=== PATIENT | female | born 1970 | race Caucasian/White ===

== ENCOUNTER 2017-05-12 11:59 | Emergency (ER) | payer OTHER ==
[~2017-05-12] VITALS: Ht 157.5 cm; Wt 50.8 kg
[~2017-05-12 11:59] MED LIST: ADULT LOW DOSE81 MG PO; ANAPROX; ANTI INFLAMMATORY; BACLOFEN 10MG T10 M1 PO; BENTYL 20 MG TA20 M1 PO; CYCLOBENZAPRINE; FLEXERIL; FLEXERIL PO; GABAPENTIN; HYDROXYZINE HCL25 M1 PO; IBUPROFEN 800800 M1 PO; LORAZEPAM 1 MG T1 M1 PO; NABUMETONE 500500 M1 PO; NAPROSYN500 MG PO; NORCO 5-325 TA1 EAC1 PO; NORCO 5-325 TA1 EACH PO; NYSTATIN 1100000 U/M BU; PANCREASE; PENICILLIN VK500 MG PO; PERCOCET 5-3251 EACH PO; PRILOSEC 20 MG20 MG PO; TORADOL 10 MG T10 MG PO; TRAMADOL PO; VISTARIL 25 MG25 M1 PO; VITAMIN D 5050000 I1; ZANAFLEX4 M1 PO; ZOFRAN4 MG PO; ZPAK PO
[2017-05-12] MEDS ORDERED: PRILOSEC 10MG C10 MG PO (12:09)
[2017-05-12] MEDS ORDERED: PERCOCET 5-3251 EACH PO (13:11)
[2017-05-12] MEDS ORDERED: CYCLOBENZAPRINE10 MG PO (13:12)
[2017-05-12] MEDS ORDERED: NAPROSYN500 MG PO (13:13)
[2017-05-12 13:46] VITALS: BP 155/79
== END 2017-05-12 13:46 | disposition home or self-care (01) ==
LOC: M.ERS 11:59
DX: S22.41XA Multiple fractures of ribs, right side, initial encounter for closed fracture (principal); K21.9 Gastro-esophageal reflux disease without esophagitis; K58.9 Irritable bowel syndrome, unspecified; Z86.73 Personal history of transient ischemic attack (TIA), and cerebral infarction without residual deficits; Z90.89 Acquired absence of other organs; Z88.8 Allergy status to other drugs, medicaments and biological substances; Z88.5 Allergy status to narcotic agent; Z88.7 Allergy status to serum and vaccine; W10.8XXA Fall (on) (from) other stairs and steps, initial encounter; Y93.89 Activity, other specified; Y92.89 Other specified places as the place of occurrence of the external cause; Y99.8 Other external cause status

== ENCOUNTER 2017-06-02 09:34 | Inpatient (IN) | payer OTHER ==
[~2017-06-02] VITALS: Ht 154.9 cm; Wt 53.5 kg
--- NOTE | ~2017-06-02 | PROC ---
[address] [address] PROCEDURE REPORT Name: DIALLO BULLOCK Room: [address] IN .R.#: [id number] Admission: 06/02/17 Attend Phys: Derrick Shaver MD Discharge: 06/05/17 Date of : 66 Report #: [id number] THIS REPORT FOR: //name// For GI report, please see the Provation report in Perceptive 7 content. By: [id number] Records Staff DRAKE /MARIANO
[~2017-06-02 09:34] MED LIST changes: +CYCLOBENZAPRINE10 MG PO; +PRILOSEC 10MG C10 MG PO
[2017-06-02 09:39] VITALS: BP 141/94
[2017-06-02] MEDS ORDERED: IBUPROFEN 600600 M1 PO (09:41)
[2017-06-02 09:53] LABS: URINE BILIRUBIN NEGATIVE (Negative); URINE BLOOD NEGATIVE (Negative); URINE CLARITY CLEAR; URINE COLOR YELLOW; URINE GLUCOSE-RANDOM NEGATIVE (Negative); URINE KETONES NEGATIVE (Negative); URINE LEUKOCYTES-REFLEX NEGATIVE (Negative); URINE NITRITE-REFLEX NEGATIVE (Negative); URINE PROTEIN NEGATIVE (Negative); URINE SPECIFIC GRAVITY 1.025 (1.005-1.030); URINE UROBILINOGEN 0.2 E.U./dl (0.2-1.0)
[2017-06-02 10:15] LABS: ABSOLUTE BASOPHILS 0.1 thou/uL (0.0-0.2); ABSOLUTE LYMPHOCYTES 1.5 thou/uL (0.8-5.3); ABSOLUTE MONOCYTES 0.6 thou/uL (0.0-1.2); ABSOLUTE NEUTROPHILS 11.5 thou/uL (1.6-8.1); BASOPHILS 0.6 %; EOSINOPHILS 0.3 %; HEMATOCRIT 46.3 % (37.0-47.0); HEMOGLOBIN 15.6 gm/dL (12.0-15.0); LYMPHOCYTES 10.8 %; MCH 33.4 pg (26.0-34.0); MCHC 33.8 g/dL (28.0-37.0); MCV 98.7 fL (80.0-100.0); MONOCYTES 4.2 %; MPV 7.2 fl. (7.2-11.1); NUCLEATED RBCS 0 /100WBC; PLATELET COUNT* 358 thou/uL (150-400); POLYS 84.1 %; RBC 4.69 mil/uL (4.20-5.00); RDW-CV 14.7 % (10.5-14.5); WBC 13.7 thou/uL (4.0-11.0)
[2017-06-02 10:28] LABS: CALCIUM 9.3 mg/dL (8.5-10.1); CREATININE 0.7 mg/dL (0.6-1.3)
--- NOTE | 2017-06-02 10:28 | NUR ---
CT CHEST ,ABD/PEL W/O CONTRAST COMPLEATED PATIENT RETURNED TO ED
[2017-06-02 10:32] LABS: TOTAL BILIRUBIN 0.3 mg/dL (<0.1-1.0); TOTAL PROTEIN 7.7 g/dL (6.4-8.2)
[2017-06-02 11:42] VITALS: BP 150/97
[2017-06-02 12:11] VITALS: BP 141/92
--- NOTE | 2017-06-02 15:47 | EKG ---
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
[2017-06-02 16:06] VITALS: BP 137/79
[2017-06-02 20:00] VITALS: BP 130/78
--- NOTE | 2017-06-02 20:23 | NUR ---
PATIENT HAS BEEN A/O X 4 THIS SHIFT SINCE BEING ADMITTED. IV FLUIDS CONTINUE TO INFUSE AND BANANA BAG INFUSING PRESENTLY. PATIENT MEDICATED FOR ABDOMINAL PAIN X 2 WITH MINIMAL RELIEF. PATIENT NAUSEATED, RELIEVED WITH ZOFRAN. PATIENT GIVEN ATIVAN X 2 WITH RELIEF OF ANXIETY. UP WITH ASSIST TO BATHROOM, IV REMAINS PATENT TO RIGHT ANKLE. REMAINS NPO. GI CONSULTED THIS SHIFT. NO SIGNS OF ALCOHOL WITHDRAWAL THIS SHIFT. FALL PRECAUTIONS IN PLACE. HOURLY ROUNDING COMPLETED. CALL LIGHT WITHIN REACH. WILL CONTINUE WITH PLAN OF CARE.
[2017-06-03] VITALS (7 sets, daily range): BP systolic 128–151; BP diastolic 64–91
[2017-06-03 04:20] LABS: ABSOLUTE BASOPHILS 0.1 thou/uL (0.0-0.2); ABSOLUTE EOSINOPHILS 0.1 thou/uL (0.0-0.7); ABSOLUTE LYMPHOCYTES 2.1 thou/uL (0.8-5.3); ABSOLUTE MONOCYTES 0.5 thou/uL (0.0-1.2); ABSOLUTE NEUTROPHILS 4.5 thou/uL (1.6-8.1); BASOPHILS 0.8 %; EOSINOPHILS 1.5 %; HEMATOCRIT 38.3 % (37.0-47.0); LYMPHOCYTES 28.7 %; MCH 33.7 pg (26.0-34.0); MCHC 33.6 g/dL (28.0-37.0); MCV 100.3 fL (80.0-100.0); MONOCYTES 6.4 %; NUCLEATED RBCS 0 /100WBC; PLATELET COUNT* 287 thou/uL (150-400); POLYS 62.6 %; RBC 3.82 mil/uL (4.20-5.00); RDW-CV 14.5 % (10.5-14.5); WBC 7.3 thou/uL (4.0-11.0)
[2017-06-03 04:30] LABS: CALCIUM 8.3 mg/dL (8.5-10.1); CREATININE 0.7 mg/dL (0.6-1.3); POTASSIUM 3.7 mmol/L (3.5-5.1); TOTAL BILIRUBIN 0.8 mg/dL (<0.1-1.0); TOTAL PROTEIN 6.3 g/dL (6.4-8.2)
[2017-06-03 04:45] LABS: HEMOGLOBIN 12.9 gm/dL (12.0-15.0)
--- NOTE | 2017-06-03 05:20 | NUR ---
ASSUMED CARE OF PATIENT AT ABOUT 0300 FROM JORDY MARIE. AGREE WITH SHIFT ASSESSMENT. PATIENT WAS GIVEN PAIN AND ANXIETY MEDS TWICE THIS SHIFT. IV FLUIDS CONTINUE TO INFUSE ORDERED. PATIENT REMAINS NPO. WILL CONTINUE TO MONITOR.
--- NOTE | 2017-06-03 17:07 | NUR ---
SW met with pt to complete initial assessment, introduce self, and SW role. Pt lives at home with her and has children and grandchildren. Pt lost her Medicaid two years ago according to pt. SW to send referral to [facility] [place] [facility]. SW to provide any needed referrals/resources and follow to assist with safe dc planning.
[2017-06-04 04:06] VITALS: BP 134/82
[2017-06-04 05:04] LABS: ABSOLUTE BASOPHILS 0.1 thou/uL (0.0-0.2); ABSOLUTE EOSINOPHILS 0.2 thou/uL (0.0-0.7); ABSOLUTE LYMPHOCYTES 1.6 thou/uL (0.8-5.3); ABSOLUTE MONOCYTES 0.4 thou/uL (0.0-1.2); ABSOLUTE NEUTROPHILS 5.1 thou/uL (1.6-8.1); BASOPHILS 0.8 %; EOSINOPHILS 2.8 %; HEMATOCRIT 36.1 % (37.0-47.0); HEMOGLOBIN 12.3 gm/dL (12.0-15.0); LYMPHOCYTES 21.8 %; MCH 33.5 pg (26.0-34.0); MCV 98.5 fL (80.0-100.0); MONOCYTES 5.7 %; MPV 7.9 fl. (7.2-11.1); NUCLEATED RBCS 0 /100WBC; PLATELET COUNT* 244 thou/uL (150-400); POLYS 68.9 %; RBC 3.66 mil/uL (4.20-5.00); RDW-CV 13.9 % (10.5-14.5); WBC 7.4 thou/uL (4.0-11.0)
--- NOTE | 2017-06-04 05:04 | NUR ---
PT UP MOST OF THE NIGHT, IV FLUIDS INFUSED, PLEASANT, PRN PAIN, NAUSEA AND ANXIETY MEDS PER REQUEST, UP AD DICK TO THE BATHROOM, NPO NOW FOR EGD LATER TODAY, CALL LIGHT IN REACH, WILL CONTINUE TO MONITOR
[2017-06-04 05:28] LABS: ALBUMIN 2.8 g/dL (3.4-5.0); CALCIUM 8.2 mg/dL (8.5-10.1); CREATININE 0.5 mg/dL (0.6-1.3); MAGNESIUM 2.4 mg/dL (1.8-2.4); TOTAL BILIRUBIN 0.5 mg/dL (<0.1-1.0); TOTAL PROTEIN 5.9 g/dL (6.4-8.2)
[2017-06-04 06:00] LABS: POTASSIUM 2.9 mmol/L (3.5-5.1)
[2017-06-04 07:45] VITALS: BP 151/85
[2017-06-04 10:51] VITALS: BP 149/95; BP 151/85
[2017-06-04 11:20] VITALS: BP 156/84
[2017-06-04 14:09] LABS: HEPATITIS B SURFACE AG Negative (Negative)
[2017-06-04 16:16] VITALS: BP 154/84
--- NOTE | 2017-06-04 16:26 | NUR ---
EGD THIS AFTERNOON, VITALS STABLE POST PROCEDURE. BANANA BAG INFUSING THEN IV SL. IV CHANGED TO RIGHT HAND IN PACU PER DR. TOLEDO REQUEST. PATIENT ADVANCED TO REG DIET. POTASSIUM REPLACED PO THIS SHIFT.
--- NOTE | 2017-06-04 16:32 | NUR ---
SW met with pt to provide list of resources. Pt was very sleepy and wanted to rest. SW asked if she had heard from [employer] and she said she had not yet. SW spoke with Clare Field who said she did speak briefly with pt but pt said that pt was too tired to complete initial screening. SW to continue to follow.
[2017-06-04 23:39] VITALS: BP 122/67; BP 132/78
[2017-06-05 04:00] VITALS: BP 149/74
[2017-06-05 04:41] LABS: HEMATOCRIT 35.2 % (37.0-47.0); MCH 33.7 pg (26.0-34.0); MCV 99.2 fL (80.0-100.0); MPV 7.8 fl. (7.2-11.1); NUCLEATED RBCS 0 /100WBC; PLATELET COUNT* 236 thou/uL (150-400); RBC 3.55 mil/uL (4.20-5.00); WBC 6.8 thou/uL (4.0-11.0)
[2017-06-05 04:51] LABS: PREALBUMIN 26.4 mg/dL (18.0-35.7)
[2017-06-05 04:54] LABS: ALBUMIN 3.1 g/dL (3.4-5.0); CREATININE 0.7 mg/dL (0.6-1.3); POTASSIUM 3.7 mmol/L (3.5-5.1); TOTAL BILIRUBIN 0.3 mg/dL (<0.1-1.0); TOTAL PROTEIN 6.6 g/dL (6.4-8.2)
--- NOTE | 2017-06-05 05:07 | NUR ---
PT UP IN ROOM AND HALLS AT START OF SHIFT, REFUSING BED ALARM ON-SETTING IT OFF FREQUENTLY-OBSERVED STEADY GAIT. BED ALARM TURNED ON AFTER IV MORPHINE AND LORAZEPAM GIVEN OVERNIGHT. OCC SHAKEY HAND TREMORS. NICOTINE PATCH GIVEN. R HAND IVF INFUSED PER PUMP, SL AFTER BANANA BAG FINISHED. K REPLACED, AM LABS DRAWN. TELE ST, SR. ABLE TO USE CALL LITE AND MAKE NEEDS KNOWN. TOLERATING LIQUIDS AND PUDDING WITHOUT N/V.
[2017-06-05 06:21] LABS: ABSOLUTE LYMPHOCYTES 0.5 thou/uL (0.8-5.3); ABSOLUTE MONOCYTES 0.3 thou/uL (0.0-1.2); ABSOLUTE NEUTROPHILS 6.1 thou/uL (1.6-8.1); ANISOCYTOSIS 1+; PLATELET ESTIMATE ADEQUATE
--- NOTE | 2017-06-05 08:07 | CON ---
[address] [address] CONSULTATION Name: DIALLO BULLOCK Room: [address] IN M.R.#: [id number] Admission: 06/02/17 Attend Phys: Derrick Shaver MD Discharge: Date of : 66 Report #: [id number] THIS REPORT FOR: //name// CC: Derrick Shaver [facility] physician/PCP DICTATED BY: Lissette MARADIAGAP DATE OF SERVICE: 06/03/2017 The patient does not have a PCP. Please note at the time of this dictation, the patient was seen and physically examined by myself. REASON FOR CONSULTATION: Abnormal CT findings, nausea and vomiting and abdominal pain. HISTORY OF PRESENT ILLNESS: This is a 47-year-old female presented to the Emergency Room with having increasing abdominal discomfort mainly in the epigastric to left upper quadrant area, which she states is progressively getting worse. She started vomiting and having severe nausea, which started the night before admission. She denies any bright red blood or any coffee ground emesis at this time. The patient did state she had a history of EGD and a colon done at [place] years ago. Upper was normal and she was told that she had colon polyps at that time. We will attempt to see if we can get those records at this time. The patient was in the Emergency Room here at [facility] in April for falling and fracturing some ribs in which she has been taking pain medicine for. She declines that she had been taking some ibuprofen and Aleve prior to that first admission in April, but says she only takes it every once in a while and it is not an ongoing daily basis that she takes that. She states her bowels move, soft and formed daily. She has not noticed any bright red blood or any melena. The patient states prior to coming in, she did try some Pepto-Bismol, but that came right back up shortly thereafter. ALLERGIES: WELLBUTRIN, DILAUDID, AND FLU VACCINE. MEDICATIONS FROM HOME: Have been ibuprofen and some omeprazole. FAMILY HISTORY: Noncontributory. SOCIAL HISTORY: The patient does smoke 1-1/2 packs per day. She does admit to alcohol use a 12 pack daily and has done this for years and she does use marijuana recreationally. REVIEW OF SYSTEMS: Twelve-point review of systems is essentially negative except what [place] [address] CONSULTATION Name: DIALLO BULLOCK Landy Room: [address] IN [facility]#: [id number] Admission: 06/02/17 Attend Phys: Derrick Shaver MD Discharge: Date of : 66 Report #: [id number] PHYSICAL EXAMINATION: VITAL SIGNS: Temperature 36.6, pulse 77, respirations 16, blood pressure 134/64. HEART: Regular rate and rhythm. CHEST: Lungs are diminished, but clear. ABDOMEN: Soft, positive bowel sounds in all 4 quadrants with no mass is noted, but tenderness noted in the left upper quadrant to epigastric area. LABORATORY DATA: Hemoglobin on admission was 15.6, it is down to 12.9, hematocrit 38.3, white count was 13.7 on admission, down to 7.3 and platelets 287. Sodium 143, potassium 3.7, chloride 109, CO2 29, BUN is 11, creatinine 0.7, GFR is 89, glucose is 98. Alcohol on admission was 53, CRP was 24.3. Lipase was 1129. She is down to 697 and her LFTs were completely normal. CT of the abdomen and pelvis showed duodenal wall thickening in the first, second and third portions with also noted calcifications within the pancreas. IMPRESSION: 1. Abdominal pain. 2. Nausea and vomiting. 3. Leukocytosis. 4. Elevated lipase. 5. Nonsteroidal antiinflammatory drug use. 6. History of alcohol abuse. PLAN: 1. EGD tomorrow. 2. We will attempt to obtain records from [facility]. 3. Increase her IV fluids 250 mL an hour. 4. Continue clear liquids. 5. Further recommendations to be made after the EGD has been performed tomorrow. Thank you for allowing us to participate in this patient's care. Please do not hesitate to call with any questions in regard to this consult. ADDENDUM REFERRING PHYSICIAN: Derrick Shaver MD The patient has no primary care provider. Seen and examined. I agree with plan that has been outlined by nurse practitioner, Lissette Gillis. In reviewing the patient's CT scan, she has evidence for chronic pancreatitis with calcifications noted in the head and tail of her pancreas and there is some indistinct inflammation noted at the level of the duodenal sweep suggestive of either pancreatitis or duodenitis or even a [address] [place] [address] CONSULTATION Name: DIALLO BULLOCK Room: M.317-P ADM IN M.R.#: [id number] Admission: 06/02/17 Attend Phys: Derrick Shaver MD Discharge: Date of : 66 Report #: [id number] duodenal ulcer. She has been taking both ibuprofen and Aleve for the pain that she had from the rib fractures. She previously had been followed by Caleb, but he and she has not been seen by anyone for her medical problems for the last 2 years. She does have a longstanding history of chronic alcohol use and abuse, and is certainly aware that she needs to discontinue alcohol, but does not really have any plans to do so at this time. Unfortunately, she also states that she has lost her Medicaid and has no real form of insurance with regards to the same. I doubt that she would qualify for much of anything given the fact that she continues to drink alcohol. In any event, we will proceed with upper endoscopy tomorrow and Dr. Avendano will make further recommendations regarding her care business development consultant. <ELECTRONICALLY SIGNED> By: Cyrus De Leon DO 06/05/17 0807 1621 1914Cyrus De Leon DO /nt
--- NOTE | 2017-06-05 08:07 | CON ---
[address] [address] CONSULTATION Name: DIALLO BULLOCK Room: [address] ADM IN M.R.#: [id number] Admission: 06/02/17 Attend Phys: Derrick Shaver MD Discharge: Date of : 66 Report #: [id number] THIS REPORT FOR: //name// CC: Derrick Shaver MD FAM physician/PCP DATE OF SERVICE: 06/02/2017 ADDENDUM REFERRING PHYSICIAN: Derrick Shaver MD The patient has no primary care provider. Seen and examined. I agree with plan that has been outlined by nurse practitioner, Lissette Gillis. In reviewing the patient's CT scan, she has evidence for chronic pancreatitis with calcifications noted in the head and tail of her pancreas and there is some indistinct inflammation noted at the level of the duodenal sweep suggestive of either pancreatitis or duodenitis or even a duodenal ulcer. She has been taking both ibuprofen and Aleve for the pain that she had from the rib fractures. She previously had been followed by Caleb, but he and she has not been seen by anyone for her medical problems for the last 2 years. She does have a longstanding history of chronic alcohol use and abuse, and is certainly aware that she needs to discontinue alcohol, but does not really have any plans to do so at this time. Unfortunately, she also states that she has lost her Medicaid and has no real form of insurance with regards to the same. I doubt that she would qualify for much of anything given the fact that she continues to drink alcohol. In any event, we will proceed with upper endoscopy tomorrow and Dr. Avendano will make further recommendations regarding her care custodial. <ELECTRONICALLY SIGNED> By: Cyrus De Leon DO 06/05/17806 15 38Cyrus De Leon DO /nt
[2017-06-05 09:15] VITALS: BP 128/74
[2017-06-05] MEDS ORDERED: HYDROXYZINE HCL25 M2 PO (10:04)
[2017-06-05] MEDS ORDERED: PRILOSEC 20 MG20 MG PO (10:04)
[2017-06-05] MEDS ORDERED: HYDROCODONE-AP1 EAC6 PO (10:44)
[2017-06-05 10:45] VITALS: BP 149/74
--- NOTE | 2017-06-05 11:08 | NUR ---
PATIENT DISCHARGED TO HOME AT THIS TIME WITH SPOUSE. VERBALIZES UNDERSTANDING OF PAPERWORK AND SCRIPTS. IV DC'D. REG DIET TOLERATED. PATIENT TAKEN OUT VIA WHEELCHAIR.
--- NOTE | 2017-06-07 11:02 | S ---
[place] [address] SURGICAL PATH RPT PROCEDURE Name: EBONY BIRD Room: [address] IN ..#: [id number] Admission: 06/02/17 Date of : 66 Discharge: 06/05/17 Report #: [id number] Path Case #: [id number] PATHOLOGY REPORT COLLECTION DATE: 06/04/2017 RECEIVED DATE: 06/04/2017 SUBMITTING PHYS: Dr. Michael Avendano OTHER PHYS: Dr. Derrick Shaver SPECIMEN(S) RECEIVED: A.Duodenal biopsy for duodenitis * * * * * * * * * * * * FINAL DIAGNOSIS: Duodenal biopsy: - Mild non-specific active duodenitis, negative for granulomas, viral inclusions, and dysplasia. (TERESA:mgr; 06/07/2017) PATHOLOGIST: Kolton Briscoe M.D. REPORT ELECTRONICALLY SIGNED BY: Kolton Briscoe M.D. DATE/TIME: 06/07/2017 11:01 * * * * * * * * * * * * GROSS PATHOLOGY: Received in formalin labeled "Ebony Bird duodenal biopsy for duodenitis," are 2 segments of valdez soft tissue measuring 0.7 x 0.4 x 0.2 cm in aggregate dimensions and ranging from 0.3 to 0.4 cm in maximum dimension. The specimen is submitted entirely in cassette A1. (TSD; 06/04/2017) CLINICAL HISTORY: None provided INITIAL CPT CODE(S): A; 97642 Professional services performed by [facility] at [facility] [address] [place] [address] Technical services performed by [facility] at [address] [place] [address], [facility] [address] [address]. [facility] [address] [place] [address] SURGICAL PATH RPT PROCEDURE Name: EBONY BIRD Room: [address] IN ..#: [id number] Admission: 06/02/17 Date of : 66 Discharge: 06/05/17 Report #: [id number] Path Case #: [id number] [address] PHONE: [phone] DIRECTOR: Simone Hernandez M.D. * * * END OF REPORT * * *
== END 2017-06-05 11:08 | disposition home or self-care (01) | DRG 438 ==
LOC: M.ERS 09:34 → M.TBA-ER 10:56 → M.3W 10:56
PROVIDERS: Family Medicine; Internal Medicine Gastroenterology; ADMIT Internal Medicine
PROC: 0DB98ZX Excision of Duodenum, Via Natural or Artificial Opening Endoscopic, Diagnostic (ICD-10-PCS; principal; 2017-06-04)
DX: K85.20 Alcohol induced acute pancreatitis without necrosis or infection (principal); E43 Unspecified severe protein-calorie malnutrition; R65.10 Systemic inflammatory response syndrome (SIRS) of non-infectious origin without acute organ dysfunction; F10.231 Alcohol dependence with withdrawal delirium; K86.1 Other chronic pancreatitis; K58.9 Irritable bowel syndrome, unspecified; M79.7 Fibromyalgia; F17.210 Nicotine dependence, cigarettes, uncomplicated; E86.0 Dehydration; Y90.9 Presence of alcohol in blood, level not specified; K21.0 Gastro-esophageal reflux disease with esophagitis; K44.9 Diaphragmatic hernia without obstruction or gangrene; K29.80 Duodenitis without bleeding; K29.70 Gastritis, unspecified, without bleeding; F41.8 Other specified anxiety disorders; Z98.1 Arthrodesis status; Z86.73 Personal history of transient ischemic attack (TIA), and cerebral infarction without residual deficits; Z79.899 Other long term (current) drug therapy; Z88.8 Allergy status to other drugs, medicaments and biological substances; Z68.22 Body mass index [BMI] 22.0-22.9, adult; Z86.010 Personal history of colon polyps

== ENCOUNTER 2017-12-19 16:07 | Emergency (ER) | payer OTHER ==
[~2017-12-19] VITALS: Ht 154.9 cm; Wt 51.3 kg
[~2017-12-19 16:07] MED LIST changes: +HYDROCODONE-AP1 EAC6 PO; +HYDROXYZINE HCL25 M2 PO; +IBUPROFEN 600600 M1 PO
[2017-12-19 16:36] LABS: URINE BILIRUBIN NEGATIVE (Negative); URINE BLOOD NEGATIVE (Negative); URINE CLARITY CLEAR; URINE COLOR YELLOW; URINE GLUCOSE-RANDOM NEGATIVE (Negative); URINE KETONES NEGATIVE (Negative); URINE LEUKOCYTES-REFLEX NEGATIVE (Negative); URINE NITRITE-REFLEX NEGATIVE (Negative); URINE PROTEIN NEGATIVE (Negative); URINE SPECIFIC GRAVITY >= 1.030 (1.005-1.030); URINE UROBILINOGEN 0.2 E.U./dl (0.2-1.0)
[2017-12-19 16:55] LABS: ABSOLUTE BASOPHILS 0.1 thou/uL (0.0-0.2); ABSOLUTE EOSINOPHILS 0.1 thou/uL (0.0-0.7); ABSOLUTE LYMPHOCYTES 2.3 thou/uL (0.8-5.3); ABSOLUTE MONOCYTES 0.8 thou/uL (0.0-1.2); ABSOLUTE NEUTROPHILS 6.6 thou/uL (1.6-8.1); BASOPHILS 1.2 %; EOSINOPHILS 0.9 %; HEMATOCRIT 40.7 % (37.0-47.0); HEMOGLOBIN 13.6 gm/dL (12.0-15.0); LYMPHOCYTES 23.1 %; MCHC 33.5 g/dL (28.0-37.0); MCV 98.5 fL (80.0-100.0); MONOCYTES 8.2 %; MPV 7.6 fl. (7.2-11.1); NUCLEATED RBCS 0 /100WBC; PLATELET COUNT* 261 thou/uL (150-400); POLYS 66.6 %; RBC 4.13 mil/uL (4.20-5.00); RDW-CV 15.4 % (10.5-14.5); WBC 9.8 thou/uL (4.0-11.0)
[2017-12-19 17:00] LABS: CALCIUM 9.2 mg/dL (8.5-10.1); CREATININE 0.7 mg/dL (0.6-1.3); POTASSIUM 3.4 mmol/L (3.5-5.1)
[2017-12-19 17:05] LABS: ALBUMIN 3.9 g/dL (3.4-5.0); TOTAL BILIRUBIN 0.5 mg/dL (<0.1-1.0); TOTAL PROTEIN 7.5 g/dL (6.4-8.2)
[2017-12-19] MEDS ORDERED: ZOFRAN4 MG PO (19:34)
[2017-12-19] MEDS ORDERED: NORCO 5-325 TA1 EACH PO (19:35)
[2017-12-19 19:54] VITALS: BP 139/79
== END 2017-12-19 19:54 | disposition home or self-care (01) ==
LOC: M.ERS 16:07
PROVIDERS: Nurse Practitioner Family
DX: K85.90 Acute pancreatitis without necrosis or infection, unspecified (principal); K21.9 Gastro-esophageal reflux disease without esophagitis; M79.7 Fibromyalgia; F17.210 Nicotine dependence, cigarettes, uncomplicated; Z88.7 Allergy status to serum and vaccine; Z88.8 Allergy status to other drugs, medicaments and biological substances; Z86.73 Personal history of transient ischemic attack (TIA), and cerebral infarction without residual deficits

== ENCOUNTER 2019-01-11 12:26 | Emergency (ER) | payer OTHER ==
[~2019-01-11] VITALS: Ht 154.9 cm; Wt 50.8 kg
[2019-01-11] MEDS ORDERED: OMEPRAZOLE20 M2 PO (12:42)
[2019-01-11] MEDS ORDERED: NORCO 5-325 TA1 EAC1 PO ×2 (14:35→14:38)
[2019-01-11] MEDS ORDERED: IBUPROFEN 800800 M1 PO ×2 (14:35→14:38)
[2019-01-11 14:46] VITALS: BP 132/74
== END 2019-01-11 14:48 | disposition home or self-care (01) ==
LOC: M.ERS 12:26
DX: S42.031A Displaced fracture of lateral end of right clavicle, initial encounter for closed fracture (principal); M54.6 Pain in thoracic spine; K58.9 Irritable bowel syndrome, unspecified; K21.9 Gastro-esophageal reflux disease without esophagitis; M79.7 Fibromyalgia; F17.210 Nicotine dependence, cigarettes, uncomplicated; Z88.7 Allergy status to serum and vaccine; Z98.890 Other specified postprocedural states; Z98.51 Tubal ligation status; Z86.73 Personal history of transient ischemic attack (TIA), and cerebral infarction without residual deficits; Z88.5 Allergy status to narcotic agent; Z88.8 Allergy status to other drugs, medicaments and biological substances; W18.39XA Other fall on same level, initial encounter; Y93.89 Activity, other specified; Y92.89 Other specified places as the place of occurrence of the external cause; Y99.8 Other external cause status

== ENCOUNTER 2019-08-26 12:43 | Inpatient (IN) | payer OTHER ==
[~2019-08-26] VITALS: Ht 154.9 cm; Wt 55.6 kg
[~2019-08-26 12:43] MED LIST changes: +OMEPRAZOLE20 M2 PO
[2019-08-26 13:08] VITALS: BP 128/92
[2019-08-26 13:28] LABS: URINE BLOOD NEGATIVE (Negative); URINE CLARITY CLEAR; URINE COLOR YELLOW; URINE GLUCOSE-RANDOM NEGATIVE (Negative); URINE KETONES TRACE (Negative); URINE LEUKOCYTES-REFLEX NEGATIVE (Negative); URINE NITRITE-REFLEX NEGATIVE (Negative); URINE PROTEIN NEGATIVE (Negative); URINE UROBILINOGEN 0.2 E.U./dl (0.2-1.0)
[2019-08-26 13:30] LABS: URINE BILIRUBIN 2+ (Negative)
[2019-08-26 13:31] LABS: ICTOTEST (BILI CONFIRMATORY) Negative (Negative)
[2019-08-26 13:44] LABS: ABSOLUTE BASOPHILS 0.1 thou/uL (0.0-0.2); ABSOLUTE EOSINOPHILS 0.1 thou/uL (0.0-0.7); ABSOLUTE LYMPHOCYTES 1.2 thou/uL (0.8-5.3); ABSOLUTE MONOCYTES 0.6 thou/uL (0.0-1.2); ABSOLUTE NEUTROPHILS 7.4 thou/uL (1.6-8.1); BASOPHILS 1.4 %; EOSINOPHILS 1.1 %; HEMATOCRIT 40.8 % (37.0-47.0); HEMOGLOBIN 14.3 gm/dL (12.0-15.0); LYMPHOCYTES 12.7 %; MCH 34.5 pg (26.0-34.0); MCHC 35.1 g/dL (28.0-37.0); MCV 98.2 fL (80.0-100.0); MONOCYTES 6.4 %; MPV 7.8 fl. (7.2-11.1); NUCLEATED RBCS 0 /100WBC; PLATELET COUNT* 293 thou/uL (150-400); POLYS 78.4 %; RBC 4.15 mil/uL (4.20-5.00); RDW-CV 14.8 % (10.5-14.5); WBC 9.4 thou/uL (4.0-11.0)
[2019-08-26 13:53] LABS: CALCIUM 9.2 mg/dL (8.5-10.1); CREATININE 0.6 mg/dL (0.6-1.3); POTASSIUM 3.5 mmol/L (3.5-5.1)
[2019-08-26 14:04] LABS: ALBUMIN 3.9 g/dL (3.4-5.0); TOTAL BILIRUBIN 0.5 mg/dL (<0.1-1.0); TOTAL PROTEIN 7.4 g/dL (6.4-8.2)
[2019-08-26 15:17] LABS: AMP/METHAMP Negative (Negative); BARBITURATES Negative (Negative); BENZODIAZEPINES Negative (Negative); COCAINE Negative (Negative); METHADONE Negative (Negative); OPIATES POSITIVE (Negative); PCP Negative (Negative); THC POSITIVE (Negative)
[2019-08-26 17:31] VITALS: BP 158/72
[2019-08-26 18:30] VITALS: BP 136/79
[2019-08-27] VITALS: BP 124/52
[2019-08-27 03:46] VITALS: BP 133/81
[2019-08-27 04:49] LABS: HEMATOCRIT 38.5 % (37.0-47.0); MCHC 33.8 g/dL (28.0-37.0); MCV 100.5 fL (80.0-100.0); MPV 8.3 fl. (7.2-11.1); RBC 3.83 mil/uL (4.20-5.00); WBC 7.5 thou/uL (4.0-11.0)
[2019-08-27 05:13] LABS: CALCIUM 8.3 mg/dL (8.5-10.1); CREATININE 0.6 mg/dL (0.6-1.3); MAGNESIUM 1.5 mg/dL (1.8-2.4); POTASSIUM 3.4 mmol/L (3.5-5.1); TOTAL BILIRUBIN 0.5 mg/dL (<0.1-1.0); TOTAL PROTEIN 6.1 g/dL (6.4-8.2)
--- NOTE | 2019-08-27 07:37 | EKG ---
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
[2019-08-27 08:00] VITALS: BP 120/58
[2019-08-27 16:00] VITALS: BP 119/62
[2019-08-27 20:00] VITALS: BP 136/56
[2019-08-28] VITALS: BP 138/71
[2019-08-28 04:00] VITALS: BP 135/65
[2019-08-28 04:56] LABS: CALCIUM 8.4 mg/dL (8.5-10.1); CREATININE 0.5 mg/dL (0.6-1.3); MAGNESIUM 1.9 mg/dL (1.8-2.4); POTASSIUM 3.2 mmol/L (3.5-5.1)
[2019-08-28 08:00] VITALS: BP 158/78
[2019-08-28 12:18] VITALS: BP 163/91
[2019-08-28 16:50] VITALS: BP 156/86
[2019-08-28 19:30] VITALS: BP 139/72
[2019-08-29] VITALS: BP 129/70
[2019-08-29 08:00] VITALS: BP 148/76
[2019-08-29 16:30] VITALS: BP 158/82
[2019-08-29 19:50] VITALS: BP 156/87
[2019-08-30] VITALS: BP 148/64
[2019-08-30 08:00] VITALS: BP 141/60
[2019-08-30 12:30] VITALS: BP 133/95
[2019-08-30 16:00] VITALS: BP 151/64
[2019-08-30 20:02] VITALS: BP 152/82
[2019-08-31] VITALS: BP 110/56
[2019-08-31 08:30] VITALS: BP 137/75
[2019-08-31 12:13] VITALS: BP 149/55
[2019-08-31] MEDS ORDERED: HYDROCODON-ACE1 EAC7 PO (12:16)
[2019-08-31] MEDS ORDERED: CREON DR 24,001 EACH PO (12:16)
[2019-08-31] MEDS ORDERED: ONDANSETRON HCL4 M2 PO (13:46)
[2019-08-31 14:13] VITALS: BP 149/55
[2019-08-31 15:38] VITALS: BP 149/55
== END 2019-08-31 15:30 | disposition home or self-care (01) | DRG 439 ==
LOC: M.ERS 12:43 → M.2W 15:40 → M.TBA-ER 15:40 → M.2W 17:42
PROVIDERS: Nurse Practitioner Family; ADMIT Internal Medicine; ATTEND Internal Medicine
DX: K85.20 Alcohol induced acute pancreatitis without necrosis or infection (principal); K86.3 Pseudocyst of pancreas; K21.9 Gastro-esophageal reflux disease without esophagitis; F17.210 Nicotine dependence, cigarettes, uncomplicated; F12.90 Cannabis use, unspecified, uncomplicated; K58.9 Irritable bowel syndrome, unspecified; Z86.73 Personal history of transient ischemic attack (TIA), and cerebral infarction without residual deficits; Z88.6 Allergy status to analgesic agent; Z88.8 Allergy status to other drugs, medicaments and biological substances; Z79.899 Other long term (current) drug therapy

== ENCOUNTER 2020-03-05 13:57 | Emergency (ER) | payer OTHER ==
[~2020-03-05] VITALS: Ht 154.9 cm; Wt 49.9 kg
[~2020-03-05 13:57] MED LIST changes: +CREON DR 24,001 EACH PO; +HYDROCODON-ACE1 EAC7 PO; +ONDANSETRON HCL4 M2 PO
[2020-03-05] MEDS ORDERED: VISTARIL 25 MG25 M1 PO (14:21)
[2020-03-05 14:49] LABS: URINE BILIRUBIN NEGATIVE (Negative); URINE BLOOD NEGATIVE (Negative); URINE CLARITY CLEAR; URINE COLOR YELLOW; URINE GLUCOSE-RANDOM NEGATIVE (Negative); URINE KETONES TRACE (Negative); URINE LEUKOCYTES-REFLEX NEGATIVE (Negative); URINE NITRITE-REFLEX NEGATIVE (Negative); URINE PROTEIN NEGATIVE (Negative); URINE UROBILINOGEN 0.2 E.U./dl (0.2-1.0)
[2020-03-05 14:50] LABS: ABSOLUTE BASOPHILS 0.1 thou/uL (0.0-0.2); ABSOLUTE EOSINOPHILS 0.1 thou/uL (0.0-0.7); ABSOLUTE MONOCYTES 0.6 thou/uL (0.0-1.2); ABSOLUTE NEUTROPHILS 7.5 thou/uL (1.6-8.1); BASOPHILS 0.8 %; EOSINOPHILS 0.7 %; HEMATOCRIT 49.2 % (37.0-47.0); HEMOGLOBIN 16.3 gm/dL (12.0-15.0); LYMPHOCYTES 19.9 %; MCH 31.3 pg (26.0-34.0); MCHC 33.1 g/dL (28.0-37.0); MCV 94.7 fL (80.0-100.0); MONOCYTES 5.8 %; MPV 7.3 fl. (7.2-11.1); NUCLEATED RBCS 0 /100WBC; PLATELET COUNT* 430 thou/uL (150-400); POLYS 72.8 %; RDW-CV 14.7 % (10.5-14.5); WBC 10.3 thou/uL (4.0-11.0)
[2020-03-05 14:59] LABS: AMP/METHAMP Negative (Negative); BARBITURATES Negative (Negative); BENZODIAZEPINES Negative (Negative); COCAINE Negative (Negative); METHADONE Negative (Negative); OPIATES POSITIVE (Negative); PCP Negative (Negative); THC POSITIVE (Negative)
[2020-03-05 15:36] LABS: CALCIUM 10.4 mg/dL (8.5-10.1); CREATININE 0.6 mg/dL (0.6-1.3); POTASSIUM 4.6 mmol/L (3.5-5.1)
[2020-03-05 15:49] LABS: ALBUMIN 4.5 g/dL (3.4-5.0); TOTAL BILIRUBIN 0.2 mg/dL (<0.1-1.0); TOTAL PROTEIN 8.5 g/dL (6.4-8.2)
[2020-03-05] MEDS ORDERED: BENTYL 10 MG CA10 MG PO (16:12)
[2020-03-05] MEDS ORDERED: HYDROCODONE-IB1 EACH PO (16:12)
[2020-03-05] MEDS ORDERED: ZOFRAN ODT4 MG PO (16:14)
--- NOTE | 2020-03-05 16:35 | EKG ---
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[place] : 1970 Requested By: Shereen Hidalgo Order Number: [id number] MD: Bobby Puentes Measurements Intervals [place] Rate: 79 P: 51 CA: 152 QRS: 49 QRSD: 79 T: 62 QT: 364 QTc: 418 Interpretive Statements Sinus rhythm Compared to ECG 08/26/2019 15:12:29 No significant changes Electronically Signed On 03-05-2020 16:35:34 DIRT BIKE MECHANIC by Bobby Puentes [email or web address] <ELECTRONICALLY SIGNED> By: Bobby Puentes MD, [facility] 03/05/20 1635 1446 1446 Bobby Puentes MD, [facility] /EPI
[2020-03-05 16:36] VITALS: BP 120/72
== END 2020-03-05 16:36 | disposition home or self-care (01) ==
LOC: M.ERS 13:57
PROVIDERS: Nurse Practitioner Family
DX: K86.1 Other chronic pancreatitis (principal); K21.9 Gastro-esophageal reflux disease without esophagitis; F17.210 Nicotine dependence, cigarettes, uncomplicated; Z90.89 Acquired absence of other organs; Z79.899 Other long term (current) drug therapy; Z88.8 Allergy status to other drugs, medicaments and biological substances